=== PATIENT | female | born 1965 | race African-American/Black ===

== ENCOUNTER 2017-05-11 11:48 | Emergency (ER) | payer MEDICARE, OTHER ==
[~2017-05-11] VITALS: Ht 170.2 cm; Wt 77.6 kg
[2017-05-11] MEDS ORDERED: DEXILANT CAP 60MG DR PO (12:04)
[2017-05-11] MEDS ORDERED: LOTREL PO (12:04)
[2017-05-11] MEDS ORDERED: MEDROXYPROGESTERONE PO (12:04)
[2017-05-11] MEDS ORDERED: ESTRADIOL 0.05 MG TOP (12:04)
[2017-05-11 12:37] LABS: *BILIRUBIN,URIN NEGATIVE (NEGATIVE); *BLOOD, URINE NEGATIVE (NEGATIVE); *CLARITY,URINE CLEAR (CLEAR); *COLOR,URINE YELLOW (YELLOW); *KETONES,URINE NEGATIVE (NEGATIVE); *PROTEIN,URINE TRACE (NEGATIVE); *UROBILINOGEN,URINE 0.2 E.U./dl (NORMAL); LEUKOCYTE ESTERASE ,URINE NEGATIVE (NEGATIVE); NITRITE, URINE NEGATIVE (NEGATIVE); UGLUCOSE NEGATIVE (NEGATIVE)
[2017-05-11 12:54] LABS: RBC,URINE 0-3 /HPF (0-3); WBC,URINE NONE SEEN /HPF (0-3)
--- NOTE | 2017-05-11 13:35 | NUR ---
Patient discharged to home in stable conditon. Written and verbal after care instructions given. Patient verbalizes understanding of instructions.
[2017-05-11 13:37] VITALS: BP 137/88
== END 2017-05-11 13:38 | disposition home or self-care (01) ==
LOC: ER 11:52
DX: M54.2 Cervicalgia (principal); K21.9 Gastro-esophageal reflux disease without esophagitis; E78.5 Hyperlipidemia, unspecified
CPT/HCPCS: 72125; 81001; 93005; 99285; A4663

== ENCOUNTER 2017-08-19 14:47 | Emergency (ER) | payer MEDICARE, OTHER ==
[~2017-08-19] VITALS: Ht 170.2 cm; Wt 81.6 kg
[~2017-08-19 14:47] MED LIST: DEXILANT CAP 60MG DR PO; ESTRADIOL 0.05 MG TOP; LOTREL PO; MEDROXYPROGESTERONE PO
--- NOTE | 2017-08-19 15:02 | NUR ---
Pt was triaged then decided not to stay and be seen. Stressed follow up, pt ambulated out of ER with steady gait.
== END 2017-08-19 15:04 | disposition left against medical advice (07) ==
LOC: ER 14:48
DX: Z53.21 Procedure and treatment not carried out due to patient leaving prior to being seen by health care provider (principal)
CPT/HCPCS: A4663

== ENCOUNTER 2018-02-17 10:39 | Emergency (ER) | payer MEDICARE, OTHER ==
[~2018-02-17] VITALS: Ht 167.6 cm; Wt 81.6 kg
--- NOTE | 2018-02-17 10:56 | NUR ---
Patient was seen by Dr olivera for cough and SOB. Chest Xray in process.. RT at bedside for treatment.
[2018-02-17] MEDS ORDERED: IPRATROPIUM BROMIDE 0.5 MG/2.5 ML NEBU NEB ONE (11:00)
[2018-02-17] MEDS ORDERED: ALBUTEROL SULFATE 2.5 MG/3 ML NEBU NEB ONE (11:00)
[2018-02-17] MEDS ORDERED: ALBUTEROL SULFATE 2.5 MG/3 ML NEBU ONE (11:14)
[2018-02-17] MEDS ORDERED: IPRATROPIUM BROMIDE 0.5 MG/2.5 ML NEBU ONE (11:14)
--- NOTE | 2018-02-17 11:32 | NUR ---
DC, RX AND FOLLOW UP INSTRUCTIONS GIVEN AND EXPLAINED TO PATIENT WHO STATES SHE UNDERSTANDS ALL INSTRUCTIONS.
== END 2018-02-17 11:33 | disposition home or self-care (01) ==
LOC: ER 10:45
DX: J40 Bronchitis, not specified as acute or chronic (principal); K21.9 Gastro-esophageal reflux disease without esophagitis; E78.5 Hyperlipidemia, unspecified; Z91.041 Radiographic dye allergy status; Z79.899 Other long term (current) drug therapy
CPT/HCPCS: 71045; A4663; J3590

== ENCOUNTER 2018-04-13 14:42 | Emergency (ER) | payer MEDICARE, OTHER ==
[~2018-04-13] VITALS: Ht 170.2 cm; Wt 78.5 kg
--- NOTE | 2018-04-13 15:01 | NUR ---
Patient discharged to home in stable conditon. Written and verbal after care instructions given. Patient verbalizes understanding of instructions.pt walks in steadty gait.
== END 2018-04-13 15:20 | disposition home or self-care (01) ==
LOC: ER 14:42
DX: S80.861A Insect bite (nonvenomous), right lower leg, initial encounter (principal); R19.7 Diarrhea, unspecified; K21.9 Gastro-esophageal reflux disease without esophagitis; E78.5 Hyperlipidemia, unspecified; Z91.041 Radiographic dye allergy status; W57.XXXA Bitten or stung by nonvenomous insect and other nonvenomous arthropods, initial encounter; Y93.89 Activity, other specified; Y92.89 Other specified places as the place of occurrence of the external cause; Y99.8 Other external cause status
CPT/HCPCS: 99281; A4663

== ENCOUNTER 2018-08-19 22:29 | Emergency (ER) | END 2018-08-19 23:58 | disposition home or self-care (01) | DX: M25.561 Pain in right knee (principal); M25.562 Pain in left knee; E78.5 Hyperlipidemia, unspecified; M19.90 Unspecified osteoarthritis, unspecified site; Z88.8 Allergy status to other drugs, medicaments and biological substances ==

== ENCOUNTER 2018-09-17 10:52 | Emergency (ER) | payer MEDICARE, OTHER ==
[~2018-09-17] VITALS: Ht 170.2 cm; Wt 81.6 kg
--- NOTE | 2018-09-17 11:29 | NUR ---
Patient discharged to home in stable conditon. Written and verbal after care instructions given. Patient verbalizes understanding of instructions.pt walks icn steady gait, no sign ofdistress.
== END 2018-09-17 11:20 | disposition home or self-care (01) ==
LOC: ER 10:52
DX: J20.9 Acute bronchitis, unspecified (principal); E78.5 Hyperlipidemia, unspecified; Z79.899 Other long term (current) drug therapy; Z88.8 Allergy status to other drugs, medicaments and biological substances
CPT/HCPCS: A4663